=== PATIENT | female | born 1970 | race Caucasian/White ===

== ENCOUNTER 2018-10-16 13:25 | Outpatient (CLI) | payer OTHER | END 2018-10-16 13:26 | disposition home or self-care (01) | LOC: SC 13:25 | PROVIDERS: ATTEND Internal Medicine Pulmonary Disease | DX: G47.33 Obstructive sleep apnea (adult) (pediatric) (principal); E66.01 Morbid (severe) obesity due to excess calories; Z68.41 Body mass index [BMI] 40.0-44.9, adult | CPT/HCPCS: 99203; 99212 ==

== ENCOUNTER 2018-11-20 20:25 | Outpatient (CLI) | payer OTHER | END 2018-11-20 20:26 | disposition home or self-care (01) | LOC: SC 20:25 | PROVIDERS: ATTEND Internal Medicine Pulmonary Disease | DX: G47.33 Obstructive sleep apnea (adult) (pediatric) (principal); G47.61 Periodic limb movement disorder | CPT/HCPCS: 95810 ==

== ENCOUNTER 2018-12-05 14:43 | Outpatient (CLI) | payer OTHER | END 2018-12-05 14:44 | disposition home or self-care (01) | LOC: SC 14:43 | PROVIDERS: ATTEND Nurse Practitioner Family | DX: G47.33 Obstructive sleep apnea (adult) (pediatric) (principal); G47.61 Periodic limb movement disorder; G25.81 Restless legs syndrome | CPT/HCPCS: 99212; 99215 ==

== ENCOUNTER 2019-01-31 13:46 | Outpatient (CLI) | payer OTHER ==
[2019-01-31 14:46] VITALS: BP 120/74
--- NOTE | 2019-01-31 14:46 | SLEEP CARE CONSULTATION ---
Information from patient questionnaire entered by Britney Sanabria. I have reviewed and concur with the information entered by Britney Sanabria. This document represents the service I personally performed and the decisions made by me, America Mathew, RN, MSN, REGISTERED DENTAL HYGIENIST. History of Present Illness Previous diagnosis: Mild, Obstructive Sleep Apnea-Hypopnea Syndrome AHI: 5.9 Reason for CPAP/BiPAP follow up: other (2 month) Equipment type: CPAP Equipment obtained from: [employer] Mask style: Nasal (Wisp) Mask brand: Respironics Backup mask available: No (keep current mask when replaced as a spare) Last cushion change: 3 months ago. HPI additional information: Since pressure change increase, she is no longer pulling off mask in sleep and sleeping through the night. The CPAP also helped her to sleep comfortably on her side. She is not waking to leg movements. RLS symptoms also less. Her follow up with PCP showed normal iron levels. CPAP Compliance Data - Data Reviewed with Patient Average duration of nightly device use: 6.2 Compliance rate %: 88.3 (60 days) Current pressure setting (cmH2O): 10-12 Humidity settin Average residual AHI: 0.7 Subjective Missed days of use due to: reports: other (unknown / moving) Patient concerns: reports: condensation in mask/hose (recent with weather change ). denies: aerophagia, mask discomfort, air blowing in eyes, mask leak noise, nasal congestion, dry mouth, nose, throat, epistaxis Observed to snore while using device: No Current pressure setting perceived as: comfortable On therapy, patient: reports: sleeping better, awakening more refreshed, being more awake and alert during the day, more rested overall. denies: drowsiness while driving Initial [place] Sleepiness Scale score: 18 Current [place] Sleepiness Scale score: 10 Allergies and Home Medications Known drug allergies: No Home medication list reviewed: Yes Allergy and home medication list: Lisinopril 10mg tab one daily Sertraline (Zoloft) 25mg tab one daily Zolpidem (Ambien) 10mg tab one nightly Omeprazole 20mg cap one daily Review of Systems Review of systems same as previous: Yes Physical Exam Blood Pressure: 120/74 Cuff size: long Heart Rate: 69 O2 Saturation: 97 Height: 5 ft 5.75 in Weight (kg): 249 lb Body Mass Index: 40.4 BMI Classification: Class 3 Impression and Plan 1. Obstructive Sleep Apnea-Hypopnea Syndrome, mild with moderate apnea supine , with good treatment compliance and good apnea control. On CPAP therapy, the patient has better sleep quality and is more rested overall. Since pressure change, her air hunger is resolved and she is sleeping through the night. Her RLS symptoms are also less with better sleep. For condensation with recent w eather change she is advised to lower humidity or add a hose cover which can be made or bought. She is also to check to see if it is time for her device to be replaced. If so, I can write an order for replacement and the new CPAPs have heated hoses and better humidity systems. If so, then she has to meet compliance of new device. She has been actively losing weight this past year. Thus she was advised how significant weight loss can reduce her apnea risks as well as pressure requirement. Symptoms to report discussed. I also reviewed supply replacement list and cleaning reference list to answer questions. Patient's apnea severity and rationale for treatment to reduce apnea, improve sleep quality and reduce cardiovascular and cerebrovascular events was reviewed. I also reviewed the benefit of consistent device use of CPAP for her hypertension, gastric reflux,depression/anxiety. Since her apnea is more severe supine, if unable to use CPAP, she is to avoid supine sleep with pillow positioning. * Continue CPAP pressure at 10-12 cmH2O * adjust humidity / hose cover * Check DME if time to update device * Notify me if snoring with mask or feeling that the pressure is too much or too little * Continue to lose weight * Return for follow up in 1year, or sooner if concerns arise I spent 100% of this 30 minute visit face to face with the patient with greater than 50% of this was spent time counseling the patient and coordination of care.
== END 2019-01-31 13:47 | disposition home or self-care (01) ==
LOC: SC 13:46
PROVIDERS: ATTEND Nurse Practitioner Family
DX: G47.33 Obstructive sleep apnea (adult) (pediatric) (principal)
CPT/HCPCS: 99212; 99214

== ENCOUNTER 2020-04-08 11:04 | Outpatient (CLI) | payer OTHER ==
--- NOTE | 2020-04-08 14:29 | SLEEP CARE CONSULTATION ---
Information from patient questionnaire entered by Cheng Jain. I have reviewed and concur with the information entered by Cheng Jain. This document represents the service I personally performed and the decisions made by , Alexandra Linares ARNP. History of Present Illness Service Date and Time: 04/08/2020 1104 Previous diagnosis: Mild, Obstructive Sleep Apnea-Hypopnea Syndrome AHI: 5.9 Reason for follow up: annual (Last seen 01/2019) Equipment type: CPAP Equipment obtained from: [employer] (getting supplies as needed) Mask style: Full face Backup mask available: Yes (old mask) Last cushion change: 2 months Prior sleep studies: Yes Year and Where: 2018 [facility] Type of Sleep Study: Polysomnography HPI additional information: PATTI MCGUIRE was diagnosed to have mild, AHI 5.9, obstructive sleep apnea- hypopnea syndrome and returned today for CPAP therapy annual follow-up. CPAP Compliance Data - Data Reviewed with Patient Average duration of nightly device use: 7 hours 44 minutes Compliance rate %: 99.4 Current pressure setting (cmH2O): 10-12 Humidity settin Average residual AHI: 0.7 Central apnea: 0.1 Obstructive apnea: 0.3 Subjective Patient concerns: reports: condensation in mask/hose (a little bit). denies: aerophagia, mask discomfort, air blowing in eyes, mask leak noise, nasal congestion, dry mouth, nose, throat, epistaxis, other Observed to snore while using device: No Current pressure setting perceived as: comfortable On therapy, patient: reports: sleeping better, awakening more refreshed, being more awake and alert during the day, more rested overall. denies: drowsiness while driving Initial [place] Sleepiness Scale score: 18 (in 2019) Current [place] Sleepiness Scale score: 13 Allergies and Home Medications Drug allergies reviewed: Yes (NKDA) Home medication list reviewed: Yes (no changes) Review of Systems Review of systems same as previous: Yes (no changes) Physical Exam Heart Rate: 75 O2 Saturation: 97 Height: 5 ft 5.75 in Weight: 268 lb Body Mass Index: 43.5 BMI Classification: Morbidly Obese Impression and Plan 1. Obstructive Sleep Apnea-Hypopnea Syndrome, mild, with good treatment compliance and good apnea control. On CPAP therapy, the patient has better sleep quality and is more rested overall. She has had some condensation in the tubing. She has adjusted her humidity up to reduce some mild oral dryness. She is not sure if she has a heated hose on her machine. I reviewed with her that she can reduce the humidity setting or increase heated hose setting as needed to reduce condensation in the mask or hose. She voiced understanding. Patient's apnea severity and rationale for treatment to reduce apnea, improve sleep quality and reduce cardiovascular and cerebrovascular events was reviewed. I also reviewed the benefit of consistent device use of CPAP for hypertension, gastric reflux, and depression/anxiety. * Continue autoCPAP pressure at 10-12 cmH2O * Notify me if snoring with mask or feeling that the pressure is too much or too little * Attempt to lose weight * Call this office if any problems using CPAP * Return for follow up in 1 year , or sooner if concerns arise Counseling Topics: Spare mask, Weight loss health impact Visit Type: In Office Time Spent with Patient (minutes): 15 Provider Statement: I spent 100% of the Face to Face Visit with the patient with greater than 50% spent counseling the patient and coordination of care.
== END 2020-04-08 11:05 | disposition home or self-care (01) ==
LOC: SC 11:04
PROVIDERS: ATTEND Nurse Practitioner Family
DX: G47.33 Obstructive sleep apnea (adult) (pediatric) (principal); E66.01 Morbid (severe) obesity due to excess calories; Z68.41 Body mass index [BMI] 40.0-44.9, adult
CPT/HCPCS: 99212; 99213

== ENCOUNTER 2020-07-19 12:13 | Outpatient (CLI) | payer OTHER | END 2020-07-19 12:14 | disposition critical access hospital (66) | LOC: EMS 12:13 | PROVIDERS: ATTEND Emergency Medicine | DX: R22.43 Localized swelling, mass and lump, lower limb, bilateral (principal) | CPT/HCPCS: A0425; A0429 ==

== ENCOUNTER 2020-07-19 12:23 | Emergency (ER) | payer OTHER ==
--- NOTE | 2020-07-19 12:30 | ED Physician Documentation ---
PD HPI LOWER EXT INJURY - Stated complaint Stated Complaint: GLF - History obtained from History obtained from: Patient - Additional information Additional information: Otherwise healthy 49-year-old woman was walking [place] the beach in flip-flops. She felt like her knee became unstable while going over [place] and fell and rolled the left ankle. The right knee hurts the most. She is unable to walk or bear weight because of it. She does have a history of [id number] osteoarthritis in that knee. No other injuries. Review of Systems Constitutional: reports: Reviewed and negative Ears: reports: Reviewed and negative Throat: reports: Reviewed and negative Cardiac: reports: Reviewed and negative PD PAST MEDICAL HISTORY - Allergies Allergies/Adverse Reactions: Allergies Allergy/AdvReac Type Severity Reaction Status Date / Time No Known Drug Allergies Allergy Verified 07/19/20 12:36 PD ED PE NORMAL - Vitals Vital signs reviewed: Yes - General General: Alert and oriented X 3, No acute distress - Neck Neck: No bony TTP - Extremities Extremities: Other (Right knee has a small effusion, no bony tenderness but she is quite tender with MCL testing. The remainder of her ligaments seem normal. She is tender and swollen over the left lateral malleolus of the ankle without deformity or other bony tenderness in the left leg.) - Neuro Neuro: Alert and oriented X 3, Normal speech Results - Vitals Vitals: Vital Signs - 24 hr 07/19/20 12:25 Temperature 36.1 C L Heart Rate 84 Respiratory 16 Rate Blood Pressure 132/102 H O2 Saturation 100 Oxygen O2 Source Room air - Rads (name of study) R knee 4v and L ankle 3v Radiology: EMP read contemporaneously (NAD) Departure - Departure Disposition: 01 Home, Self Care Clinical Impression: Internal derangement of right knee Left ankle sprain Qualifiers: Encounter type: initial encounter Involved ligament of ankle: unspecified ligament Qualified Code(s): S93.402A - Sprain of unspecified ligament of left ankle, initial encounter Condition: Good Record reviewed to determine appropriate education?: Yes Instructions: ED Sprain Ankle W X Ray, ED Sprain Knee Collateral Ligaments Follow-Up: [facility] [Provider Group] Comments: There is suspicion of potentially a ligamentous injury in your right knee. Keep the splint on for the knee when you are up and around. You do not have to wear it in bed or while showering. The splint can go over your pants. For the knee specifically I would recommend following up with an orthopedic surgeon. 1 is listed on this form, call Monday for an appointment. You can wear the ankle splint just as needed for comfort and they can come off as soon as you do not feel like it is needed anymore.
[2020-07-19 12:36] VITALS: BP 132/102
--- NOTE | 2020-07-19 13:27 | XRAY Report ---
PROCEDURE: Ankle 3 View LT INDICATIONS: knee/ankle injury TECHNIQUE: 3 views of the ankle were acquired. COMPARISON: None FINDINGS: Bones: No fractures or dislocations. Ankle mortise is normally aligned. No suspicious bony lesions . Soft tissues: No tibiotalar joint effusion. Achilles tendon appears normal. IMPRESSION: No evidence acute bony abnormality of the left ankle. Reviewed by: Nehemiah Baez MD on 07/19/2020 12:25 PM [facility] Approved by: Nehemiah Baez MD on 07/19/2020 12:25 PM [facility] Station ID: [id number]
--- NOTE | 2020-07-19 13:29 | XRAY Report ---
PROCEDURE: Knee 4 View RT INDICATIONS: knee/ankle injury TECHNIQUE: 3 views of the right knee(s) were acquired. COMPARISON: None. FINDINGS: Bones: Tricompartment osteophytes. No fractures or dislocations. No suspicious bony lesions. Soft tissues: No joint effusion. No suspicious soft tissue calcifications. IMPRESSION: 1. Degenerative arthritis. 2. No evidence acute bony abnormality of the right knee. Reviewed by: Nehemiah Baez MD on 07/19/2020 12:28 PM [facility] Approved by: Nehemiah Baez MD on 07/19/2020 12:28 PM [facility] Station ID: [id number]
== END 2020-07-19 14:31 | disposition home or self-care (01) ==
LOC: EDUNIT# → ED 12:23
DX: S93.402A Sprain of unspecified ligament of left ankle, initial encounter (principal); M23.91 Unspecified internal derangement of right knee; X50.1XXA Overexertion from prolonged static or awkward postures, initial encounter; Y93.01 Activity, walking, marching and hiking; Y92.832 Beach as the place of occurrence of the external cause
CPT/HCPCS: 99282; 99283

== ENCOUNTER 2020-07-30 08:00 | Outpatient (CLI) | payer OTHER ==
--- NOTE | 2020-07-30 11:41 | XRAY Report ---
PROCEDURE: Knee Standing RT INDICATIONS: RT KNEE PAIN TECHNIQUE: 4 views of the right knee and one view of the left knee. COMPARISON: None. FINDINGS: Bones: No acute fractures or dislocations. No suspicious bony lesions. Mild tricompartment articula r osteophyte formation bilaterally. Mild medial compartment narrowing bilaterally. Soft tissues: There is a moderate right knee joint effusion. Well-corticated 7 mm osseous structure p rojects over the right suprapatellar recess. IMPRESSION: 1. Bilateral osteoarthritis with medial compartment narrowing. 2. Right knee joint effusion. 3. Findings suggestive of an intra-articular loose body within the right knee joint. This could be fu rther assessed with MRI, if clinically indicated. Reviewed by: lT Chi MD on 07/30/2020 11:40 AM PDT Approved by: Tl Chi MD on 07/30/2020 11:40 AM PDT Station ID: [id number]
--- NOTE | 2020-07-30 11:42 | XRAY Report ---
PROCEDURE: Ankle 3 View LT INDICATIONS: LT ANKLE PAIN TECHNIQUE: 3 views of the ankle were acquired. COMPARISON: 07/19/2020 x-ray FINDINGS: Bones: No fractures or dislocations. Ankle mortise is normally aligned. No suspicious bony lesions . Soft tissues: No tibiotalar joint effusion. Achilles tendon appears normal. IMPRESSION: No acute fracture. No osseous lesion. If symptoms and/or clinical suspicion for patholog y continue, further assessment with repeat plain films, or advanced imaging (e.g., CT, MRI, or bone s can) is recommended for further assessment. Reviewed by: Tl Chi MD on 07/30/2020 11:41 AM PDT Approved by: Tl Chi MD on 07/30/2020 11:41 AM PDT Station ID: [id number]
== END 2020-07-30 23:59 | disposition home or self-care (01) ==
LOC: DI.N 08:00
PROVIDERS: ATTEND Orthopaedic Surgery
DX: M25.561 Pain in right knee (principal); M25.461 Effusion, right knee; M17.0 Bilateral primary osteoarthritis of knee; M25.572 Pain in left ankle and joints of left foot

== ENCOUNTER 2020-07-31 10:38 | Day surgery (SDC) | payer OTHER ==
[~2020-07-31 10:38] MED LIST: ACETAMINOPHEN 1,000 MG/100 ML 100 ML IV ONE; CELECOXIB 100 MG CAPSULE PO ONE
[2020-07-31] MEDS ORDERED: LACTATED RINGERS 1,000 ML IV ONE ×2 (10:43→15:39)
[2020-07-31] MEDS ORDERED: ACETAMINOPHEN 1,000 MG/100 ML 100 ML IV ONE (11:00)
[2020-07-31] MEDS ORDERED: CELECOXIB 100 MG CAPSULE PO ONE (11:00)
[2020-07-31] MEDS ORDERED: SODIUM CHLORIDE 0.9% IV ONE (11:00)
[2020-07-31] MEDS ORDERED: CEFOTETAN DISODIUM IV ONE (11:00)
[2020-07-31] MEDS ORDERED: NALOXONE 0.4 MG/ML VIAL IVP PRN (11:59)
[2020-07-31] MEDS ORDERED: fentaNYL 100 MCG/2 ML VIAL IVP PRN (11:59)
[2020-07-31] MEDS ORDERED: ePHEDrine 50 MG/ML VIAL IVP PRN (11:59)
[2020-07-31] MEDS ORDERED: HYDROmorphone 0.5 MG/0.5 ML SYRINGE IVP PRN (11:59)
[2020-07-31] MEDS ORDERED: METOCLOPRAMIDE 10 MG/2 ML VIAL IVP PRN (11:59)
[2020-07-31] MEDS ORDERED: ATROPINE ABBOJECT 1 MG/10 ML SYRINGE IVP PRN (11:59)
[2020-07-31] MEDS ORDERED: ONDANSETRON 4 MG/2 ML VIAL IVP PRN (11:59)
[2020-07-31] MEDS ORDERED: MORPHINE 2 MG/ML CARPUJECT IVP PRN (11:59)
--- NOTE | 2020-07-31 11:59 | ANESTHESIA ---
Pre-Anesthesia VS, & Labs - Diagnosis Ruptured R quad tendon - Procedure R quad tendon repair Vital Signs: Temp Pulse Resp BP Pulse Ox 37.7 C 70 16 138/88 H 99 07/31/20 10:44 07/31/20 10:44 07/31/20 10:44 07/31/20 10:44 07/31/20 10:44 Height: 5 ft 6 in Weight (kg): 122.2 kg Body Mass Index: 43.4 BMI Classification: Morbidly Obese - NPO >8 hours - Is Patient ?: No - Lab Results Lab results reviewed: Yes Home Medications and Allergies Home Medications: Ambulatory Orders Lisinopril [Prinivil] 10 mg PO DAILY 07/30/20 Sertraline [Zoloft] 25 mg PO DAILY 07/30/20 Zolpidem Tartrate [Ambien] 10 mg PO DAILY PM 07/30/20 Lisinopril [Prinivil] 10 mg PO DAILY 07/30/20 Sertraline [Zoloft] 25 mg PO DAILY 07/30/20 Zolpidem Tartrate [Ambien] 10 mg PO DAILY PM 07/30/20 Allergies/Adverse Reactions: Allergies Allergy/AdvReac Type Severity Reaction Status Date / Time No Known Drug Allergies Allergy Verified 07/31/20 11:17 Anes History & Medical History - Anesthetic History Anesthesia Complications: reports: No previous complications Family history of Anesthesia Complications: Denies Family history of Malignant Hyperthermia: Denies - Medical History Cardiovascular: reports: Hypertension Pulmonary: reports: None, Sleep apnea, CPAP use Gastrointestinal: reports: None Neuro: reports: None Endocrine/Autoimmune: reports: None Blood Disorders: reports: None Skin: reports: None Smoking Status: Never smoker - Surgical History Gynecologic: reports: section, Hysterectomy Exam General: Alert, Oriented x3, Cooperative Dental: WNL Mouth Openin Fingerbreadth Neck Mobility: Normal Mallampati classification: II Thyromental Distance: greater than 6 cm Respiratory: Lungs clear, Normal breath sounds, No respiratory distress Cardiovascular: Regular rate Neurological: Normal speech Mental/Cognitive Status: Alert/Oriented X3, Normal for patient Cognitive Status: Within normal limits Plan Anesthesia Type: General, Femoral Block Consent for Procedure(s) Verified and Reviewed: Yes Code Status: Attempt Resuscitation ASA classification: 2-Mild systemic disease Is this case an emergency?: No
[2020-07-31] MEDS ORDERED: LACTATED RINGERS 1,000 ML IV SCH (12:00)
[2020-07-31] MEDS ORDERED: fentaNYL 100 MCG/2 ML VIAL ONE ×3 (12:20→14:54)
[2020-07-31] MEDS ORDERED: MIDAZOLAM 2 MG/2 ML VIAL ONE (12:20)
[2020-07-31] MEDS ORDERED: LIDOCAINE-MPF 2% 5 ML VIAL ONE ×2 (12:21→14:59)
[2020-07-31] MEDS ORDERED: PROPOFOL 200 MG/20 ML VIAL IVP ONE ×4 (12:21→15:31)
[2020-07-31] MEDS ORDERED: ROPIVACAINE 0.5% PF 20 ML AMPULE ONE (12:22)
[2020-07-31 12:35] LABS: B. PARAPERTUSSIS- RESP PCR PAN NOT DETECTED; B. PERTUSSIS- RESP PCR PANEL NOT DETECTED; C. PNEUMONIAE- RESP PCR PANEL NOT DETECTED; CORONAVIRUS 229E-RESP PCR NOT DETECTED; CORONAVIRUS HKU1-RESP PCR NOT DETECTED; CORONAVIRUS NL63-RESP PCR NOT DETECTED; CORONAVIRUS OC43-RESP PCR NOT DETECTED; HUMAN METAPNEUMOVIRUS NOT DETECTED; INFLUENZA A- RESP PCR PANEL NOT DETECTED; INFLUENZA B - RESP PCR PANEL NOT DETECTED; M. PNEUMONIAE- RESP PCR PANEL NOT DETECTED; PARAINFLUENZA VIRUS 1 NOT DETECTED; PARAINFLUENZA VIRUS 2 NOT DETECTED; PARAINFLUENZA VIRUS 3 NOT DETECTED; PARAINFLUENZA VIRUS 4 NOT DETECTED; RHINOVIRUS/ENTEROVIRUS NOT DETECTED; RSV- RESP PCR PANEL NOT DETECTED; SARS-CoV-2 -RESP PCR PANEL NOT DETECTED
[2020-07-31] MEDS ORDERED: ePHEDrine 50 MG/ML VIAL IVP ONE (13:48)
[2020-07-31] MEDS ORDERED: DEXAMETHASONE 4 MG/ML VIAL ONE (13:56)
[2020-07-31] MEDS ORDERED: ONDANSETRON 4 MG/2 ML VIAL ONE (13:57)
[2020-07-31] MEDS ORDERED: ROCURONIUM 50 MG/5 ML VIAL ONE (14:43)
[2020-07-31] MEDS ORDERED: SUGAMMADEX 200 MG/2 ML VIAL IVP ONE (14:51)
--- NOTE | 2020-07-31 14:51 | OPERATIVE REPORT ---
Operative Report - General Procedure Date: 07/31/20 Planned Procedure: Repair of quadriceps tendon rupture right knee Pre-Op Diagnosis: Complete rupture quadriceps tendon right knee Procedure Performed: Repair of quadriceps tendon rupture right knee Post Op Diagnosis: Same as preoperative diagnosis - Procedure Note Primary Surgeon: Anastacio Lee MD Secondary Surgeon: Alfredo ALBERT Anesthesia Provider: Pato Vu CRNA Anesthesia Technique: General ET tube, Regional block Estimated Blood Loss (mL): 75 Indications: This is a relatively healthy 49-year-old woman who was walking in had a right knee collapse with the feeling of a pop and inability to bear weight on the right leg. The injury happened about a 10 days ago presented to my office yesterday. She had a defect in the quadriceps tendon and inability to actively extend the right knee. She had normal x-rays to right knee Findings: Complete rupture of the quadriceps tendon just slightly proximal to patella with tears of medial and lateral retinaculum as well. There was some arthritic changes to the patellofemoral area with an osteophyte about the patella. Complications: None - Other Other Information/Narrative: Patient was brought to the operating room and given a general in the tracheal anesthetic as well as a femoral nerve block to right leg. The right upper extremity was prepped and draped in a sterile manner in the usual fashion. The pneumatic tourniquet had been applied to the proximal right thigh over cast padding. A timeout procedure was performed by the entire operating room team and all were in agreement. The right leg was exsanguinated by elevation. The pneumatic tourniquet was elevated to 250 mmHg. A physician veterinary technician assistant was utilized felt to be necessary to facilitate exposure, suture passage, wound closure and splint application. A midline anterior longitudinal incision was made. The superior arthrotomy was evacuated of hematoma fluid. The superior pole patellar edges were freshened with a rongeur and curette. 3 drill holes were made from superior to inferior with the drill exiting through the patellar tendon; 2.5 mm drill bit utilized. Small vertical incision was made in the patellar tendon to allow passage of the drill bit. The quadriceps tendon was repaired with #5 [employer] FiberWire using a locking suture and 4 suture strands beginning distally and extending it proximally. 2 strands were taken through the medial lateral drill holes using a suture passer and 2 sutures were taken through the central hole with a suture passer. The knee was in extension, pneumatic tourniquet had been deflated. The sutures were tied with the knee in extension and provided good approximation at the repair site. The retinaculum was closed with #2 FiberWire. The knots from the #5 [employer]rex FiberWire were buried in closed with soft tissue using 0 Vicryl suture. The wound was thoroughly irrigated. The subcutaneous tissue was closed with 2-0 Vicryl. The skin was closed with 3-0 Monocryl subcuticular suture. Dermabond was used to seal the incision. Knee flexion was gently tested, achieving at least 45 of flexion without tension. Dry sterile dressing was applied. A long-leg posterior splint was applied with the right knee in extension. The pneumatic tourniquet time was 48 minutes. She tolerated the procedure well.She did receive Ancef as a prophylactic antibiotic and this was tolerated well
[2020-07-31] MEDS ORDERED: KETOROLAC 15 MG/ML VIAL IVP STA (15:35)
[2020-07-31] MEDS ORDERED: HYDROcod/ACETAM 5/325 MG TABLET PO PRN (15:35)
[2020-07-31 16:42] VITALS: BP 126/77
--- NOTE | 2020-07-31 18:00 | ANESTHESIA POST OP EVALUATION ---
Anesthesia Post Eval - Post Anesthesia Eval Vitals: Last Vital Signs Temp 36.8 C 07/31/20 16:41 Pulse 70 07/31/20 16:41 Resp 12 07/31/20 16:41 BP 126/77 07/31/20 16:41 Pulse Ox 97 07/31/20 16:41 CV Function Including HR & BP: positive: Stable Pain Control: positive: Satisfactory Nausea & Vomiting: positive: Negative Mental Status: positive: Baseline Respiratory Status: Airway Patent Hydration Status: Satisfactory Anesthesia Complications: positive: None
== END 2020-07-31 10:39 | disposition home or self-care (01) ==
LOC: SDS 10:38
PROVIDERS: ATTEND Orthopaedic Surgery
DX: S76.111A Strain of right quadriceps muscle, fascia and tendon, initial encounter (principal); M17.11 Unilateral primary osteoarthritis, right knee; Z20.822 Contact with and (suspected) exposure to COVID-19; I10 Essential (primary) hypertension; G47.30 Sleep apnea, unspecified; E66.01 Morbid (severe) obesity due to excess calories; Z68.41 Body mass index [BMI] 40.0-44.9, adult
CPT/HCPCS: 0202U; 27385; A9270; J0131; J7120

== ENCOUNTER 2022-01-25 14:22 | Outpatient (CLI) | payer OTHER ==
[2022-01-25 14:55] VITALS: BP 136/81
--- NOTE | 2022-01-25 14:55 | SLEEP CARE CONSULTATION ---
Information from patient questionnaire entered by Luz Jain MA. I have reviewed and concur with the information entered by Luz Jain MA. This document represents the service I personally performed and the decisions made by , Alexandra Linares ARNP. History of Present Illness Service Date and Time: 01/25/2022 1422 Previous diagnosis: Mild, Obstructive Sleep Apnea-Hypopnea Syndrome AHI: 5.9 Reason for follow up: annual (LAST SEEN 03/2020 ) Equipment type: CPAP Equipment obtained from: [employer] (getting supplies as needed) Mask style: Full face Mask brand: [employer] ([place]) Backup mask available: Yes (old mask) Last cushion change: 2 weeks Prior sleep studies: Yes Year and Where: 2018 [facility] Type of Sleep Study: Polysomnography HPI additional information: PATTI MCGUIRE was diagnosed to have mild, AHI 5.9, obstructive sleep apnea- hypopnea syndrome and returned today for CPAP therapy annual follow-up. Sleep Study - Results Type of Sleep Study: Polysomnography Prior sleep studies: Yes Year and Where: 2018 [facility] CPAP Compliance Data - Data Reviewed with Patient Average duration of nightly device use: 7 hours 18 mins Compliance rate %: 100 (90/90 days used) Current pressure setting (cmH2O): 10-12 Average residual AHI: 0.4 Average large leak: 0 secs Subjective Patient concerns: reports: condensation in mask/hose (slight; sometimes from humidity being increased). denies: aerophagia, mask discomfort, air blowing in eyes, mask leak noise, nasal congestion, dry mouth, nose, throat, epistaxis, other Observed to snore while using device: No Current pressure setting perceived as: comfortable On therapy, patient: reports: sleeping better, awakening more refreshed, being more awake and alert during the day, more rested overall. denies: drowsiness while driving Initial [place] Sleepiness Scale score: 18 (in 2019) Current [place] Sleepiness Scale score: 12 Allergies and Home Medications Home medication list reviewed: Yes (no changes) Allergy and home medication list: Allergies No Known Drug Allergies Allergy (Verified 07/31/20 11:17) Review of Systems Review of systems same as previous: No (surgery on right quadricep muscle, 1 yr; Pulmonary embolism 3 wks post op) Physical Exam Vital signs obtained and entered by: Vincent JAIN MA Blood Pressure: 136/81 (LEFT) Cuff size: wrist Heart Rate: 73 O2 Saturation: 96 Height: 5 ft 6 in Weight: 279 lb Weight change since last visit: 11 lb gain Body Mass Index: 45.0 BMI Classification: Morbidly Obese Impression and Plan 1. Obstructive Sleep Apnea-Hypopnea Syndrome, mild, with excellent treatment compliance and excellent apnea control. On CPAP therapy, the patient has better sleep quality and is more rested overall. She has a [employer]star Auto 60 series that is very old. The patients CPAP is over 5 years old and of reasonable use. Thus, the CPAP will be updated. A DWO prescription will be made. Compliance guidelines for new device and follow up discussed. Patient's apnea severity and rationale for treatment to reduce apnea, improve sleep quality and reduce cardiovascular and cerebrovascular events was reviewed. I also reviewed the benefit of consistent device use of CPAP for hypertension, gastric reflux, depression and anxiety. 2. Obesity, unspecified. Currently patients BMI is 45.0. She just started back at the gym, exercising for 45 minutes. Obesity increases the risk of apnea, CPAP pressure requirements and overall health risks especially cardiovascular and diabetes. Thus patient is advised to lose weight. Weight loss can be done with reducing portion size, reducing refined foods and balancing content with vegetables, fruit and whole grain foods. In addition, patient encouraged to get regular exercise. * Continue auto CPAP pressure at 10-12 cmH2O * Update machine * Update supplies * Notify me if snoring with mask or feeling that the pressure is too much or too little * Attempt to lose weight * Call this office if any problems using CPAP * Return for follow up one month after obtaining new device, or sooner if concerns arise Counseling Topics: Spare mask, Weight loss health impact Prescriptions: Auto CPAP, Device supplies Visit Type: In Office Time Spent with Patient (minutes): 22 Provider Statement: I spent 100% of the Face to Face Visit with the patient with greater than 50% spent counseling the patient and coordination of care.
== END 2022-01-25 14:23 | disposition home or self-care (01) ==
LOC: SC 14:22
PROVIDERS: ATTEND Nurse Practitioner Family
DX: G47.33 Obstructive sleep apnea (adult) (pediatric) (principal); E66.01 Morbid (severe) obesity due to excess calories; Z68.42 Body mass index [BMI] 45.0-49.9, adult
CPT/HCPCS: 99212; 99213

== ENCOUNTER 2022-04-01 13:59 | Outpatient (CLI) | payer OTHER ==
--- NOTE | 2022-04-01 14:32 | SLEEP CARE CONSULTATION ---
Information from patient questionnaire entered by Jeri Espinoza. I have reviewed and concur with the information entered by Jeri Espinoza. This document represents the service I personally performed and the decisions made by me, Alexandra Linares ARNP. History of Present Illness Service Date and Time: 04/01/2022 1359 Previous diagnosis: Mild, Obstructive Sleep Apnea-Hypopnea Syndrome AHI: 5.9 Reason for follow up: first compliance after device update Equipment type: CPAP Equipment obtained from: [employer] (getting supplies as needed) Mask style: Full face Backup mask available: Yes (old mask) Last cushion change: 2 days Prior sleep studies: Yes Year and Where: [address] [facility] Type of Sleep Study: Polysomnography HPI additional information: PATTI MCGUIRE was diagnosed to have mild, AHI 5.9, obstructive sleep apnea- hypopnea syndrome and returned today for CPAP therapy first compliance after updating device follow-up. Sleep Study - Results Type of Sleep Study: Polysomnography Prior sleep studies: Yes Year and Where: [address] [facility] CPAP Compliance Data - Data Reviewed with Patient Average duration of nightly device use: 7 hours 16 mins Compliance rate %: 100 (46/46 days used) Current pressure setting (cmH2O): 10-12 Average residual AHI: 0.4 Central apnea: 0.0 Obstructive apnea: 0.3 Subjective Patient concerns: reports: aerophagia (all day long bloated feeling, may be GI issues; not burping in [place]). denies: mask discomfort, air blowing in eyes, mask leak noise, condensation in mask/hose, nasal congestion, dry mouth, nose, throat, epistaxis Observed to snore while using device: No Current pressure setting perceived as: comfortable On therapy, patient: reports: sleeping better, awakening more refreshed, being more awake and alert during the day, more rested overall. 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 Obstructive Sleep Apnea-Hypopnea Syndrome, mild, with good treatment compliance and good apnea control. On CPAP therapy, the patient has better sleep quality and is more rested overall. Patient really likes new machine and feels the pressure is comfortable. Patient has significant improvement of their sleep apnea and are satisfied with current CPAP therapy. Patient has been having some issues with bloating feeling but she states this is all day long and she is working with her PCP for further testing. Patient denies problems with oral dryness, nasal congestion, epistaxis or skin irritation. Patient's apnea severity and rationale for treatment to reduce apnea, improve sleep quality and reduce cardiovascular and cerebrovascular events was reviewed. I also reviewed the benefit of consistent device use of CPAP for hypertension, gastric reflux, depression and anxiety. 2. Obesity, unspecified. Currently patients BMI is 44.6. She goes to gym 3 times a week. Obesity increases the risk of apnea, CPAP pressure requirements and overall health risks especially cardiovascular and diabetes. Thus patient is advised to lose weight. The patient's CPAP pressure range should accommodate some weight loss. Symptoms to report for additional pressure adjustment discussed. * Continue auto CPAP pressure at 10-12 cmH2O * Notify me if snoring with mask or feeling that the pressure is too much or too little * Attempt to lose weight * Call this office if any problems using CPAP * Return for follow up in 1 year, or sooner if concerns arise Counseling Topics: Spare mask, Weight loss health impact Visit Type: In Office Time Spent with Patient (minutes): 11 Provider Statement: I spent 100% of the Face to Face Visit with the patient with greater than 50% spent counseling the patient and coordination of care.
[2022-04-01 14:33] VITALS: BP 128/70
== END 2022-04-01 14:00 | disposition home or self-care (01) ==
LOC: SC 13:59
PROVIDERS: ATTEND Nurse Practitioner Family
DX: G47.33 Obstructive sleep apnea (adult) (pediatric) (principal); E66.01 Morbid (severe) obesity due to excess calories; Z68.41 Body mass index [BMI] 40.0-44.9, adult
CPT/HCPCS: 99212

== ENCOUNTER 2023-04-05 09:31 | Outpatient (CLI) | payer OTHER ==
--- NOTE | 2023-04-05 09:55 | Sleep Patient Instructions ---
Sleep Center Visit Summary - Patient Visit Information Reason for Visit: Annual Visit - Patient Instructions Additional Instructions: You will continue with CPAP therapy with pressure set at 10-12 cmH2O. A supply prescription will be updated with your DME. We encourage you to continue to try to lose weight. Please follow up with the sleep care office in 1 year. - Clinic Information Contact: [facility] [address] [place] [address] [email or web address] T: [phone]
--- NOTE | 2023-04-05 09:58 | SLEEP CARE CONSULTATION ---
Information from patient questionnaire entered by Jeri Espinoza. I have reviewed and concur with the information entered by Jeri Espinoza. This document represents the service I personally performed and the decisions made by me, Alexandra Linares ARNP. History of Present Illness Service Date and Time: 04/05/2023 09 Previous diagnosis: Mild, Obstructive Sleep Apnea-Hypopnea Syndrome AHI: 5.9 Reason for follow up: annual (LAST SEEN 03/2022) Equipment type: CPAP (Airsense 10, s/u 02/2022, SD CARD NEEDED) Equipment obtained from: [employer] (getting supplies as needed) Mask style: Nasal Mask brand: Resmed (AirFit [id number]) Backup mask available: Yes Last cushion change: Monday Prior sleep studies: Yes Year and Where: 2018 [facility] Type of Sleep Study: Polysomnography HPI additional information: PATTI MCGUIRE was diagnosed to have mild, AHI 5.9, obstructive sleep apnea- hypopnea syndrome and returned today for CPAP therapy annual follow-up. Sleep Study - Results Type of Sleep Study: Polysomnography Prior sleep studies: Yes Year and Where: 2018 [facility] CPAP Compliance Data - Data Reviewed with Patient Average duration of nightly device use: 7 hours 38 minutes Compliance rate %: 100 (365/365 days used) Current pressure setting (cmH2O): 10-12 Average residual AHI: 0.3 Central apnea: 0 Obstructive apnea: 0.2 Average large leak: 0.2 L/min Subjective Patient concerns: reports: other (skin irritation around nose where mask sits on skin). denies: aerophagia, mask discomfort, air blowing in eyes, mask leak noise, condensation in mask/hose, nasal congestion, dry mouth, nose, throat, epistaxis Observed to snore while using device: No Current pressure setting perceived as: comfortable On therapy, patient: reports: sleeping better, awakening more refreshed, being more awake and alert during the day, more rested overall. denies: drowsiness while driving Initial [place] Sleepiness Scale score: 18 (in 2019) Current [place] Sleepiness Scale score: 8 (04/05/23) Allergies and Home Medications Known drug allergies: No Drug allergies reviewed: Yes Home medication list reviewed: Yes (no changes) Allergy and home medication list: Allergies No Known Drug Allergies Allergy (Verified 04/04/23 13:44) Review of Systems Review of systems same as previous: Yes (NO CHANGE) Physical Exam Vital signs obtained and entered by: JERI Benitez MA Blood Pressure: 122/72 (LEFT ARM) Cuff size: regular Heart Rate: 66 O2 Saturation: 96 Height: 5 ft 6 in Weight: 259 lb 3.2 oz Weight change since last visit: 18 lbs loss Body Mass Index: 41.8 BMI Classification: Morbidly Obese Impression and Plan 1. Obstructive Sleep Apnea-Hypopnea Syndrome, mild, with good treatment compliance and good apnea control. On CPAP therapy, the patient has better sleep quality and is more rested overall. Patient has significant improvement of their sleep apnea and is satisfied with current CPAP therapy. Patient has been having some skin irritation with redness and itching where the mask touches her face. I advised her to try a barrier to reduce skin irritation. She voiced understanding. Patient's apnea severity and rationale for treatment to reduce apnea, improve sleep quality and reduce cardiovascular and cerebrovascular events was reviewed. I also reviewed the benefit of consistent device use of CPAP for hypertension, gastric reflux, depression and anxiety. 2. Obesity, unspecified. Currently patients BMI is 41.8. She has lost weight and had breast reduction surgery. Obesity increases the risk of apnea, CPAP pressure requirements and overall health risks especially cardiovascular and diabetes. Thus patient is advised to continue to try to lose weight. * Continue auto CPAP pressure at 10-12 cmH2O * Update supply prescription * Try mask barrier to reduce skin irritation * Notify me if snoring with mask or feeling that the pressure is too much or too little * Attempt to lose weight * Call this office if any problems using CPAP * Return for follow up in 1 year, or sooner if concerns arise Counseling Topics: Spare mask, Weight loss health impact Prescriptions: Device supplies Follow up with Sleep Care in: 1 year Visit Type: In Office Time Spent with Patient (minutes): 20 Provider Statement: I spent 100% of the Face to Face Visit with the patient with greater than 50% spent counseling the patient and coordination of care.
[2023-04-05 10:01] VITALS: BP 122/72; O2SAT 96
== END 2023-04-05 09:32 | disposition home or self-care (01) ==
LOC: SC 09:31
PROVIDERS: ATTEND Nurse Practitioner Family
DX: G47.33 Obstructive sleep apnea (adult) (pediatric) (principal); E66.01 Morbid (severe) obesity due to excess calories; Z68.41 Body mass index [BMI] 40.0-44.9, adult
CPT/HCPCS: 99212; 99213